=== PATIENT | female | born 1940 | race Caucasian/White ===

== ENCOUNTER → 2017-07-09 | Outpatient (CLI) | payer OTHER | END | disposition home or self-care (01) | LOC: CFH 10:49 | PROVIDERS: ATTEND Internal Medicine | DX: G31.9 Degenerative disease of nervous system, unspecified (principal); L72.3 Sebaceous cyst | CPT/HCPCS: 70551 ==

== ENCOUNTER → 2017-11-06 | Outpatient (CLI) | payer OTHER ==
[~2017-11-06] MED LIST: ASPI325T17 PO; LIDOCAINE 1%, 20ML ONE
== END ==
LOC: RAD 15:10
PROVIDERS: ATTEND Surgery
DX: C50.312 Malignant neoplasm of lower-inner quadrant of left female breast (principal); C50.411 Malignant neoplasm of upper-outer quadrant of right female breast
CPT/HCPCS: 38792; A9541; J3490

== ENCOUNTER 2017-11-07 08:26 | Day surgery (SDC) | payer OTHER ==
[~2017-11-07] VITALS: Ht 162.6 cm; Wt 80.0 kg
[~2017-11-07 08:26] MED LIST changes: -ASPI325T17 PO; +BUPIVACAINE/PF 0.5% ONE; +ISOSULFAN BLUE 10 MG/ML, 5ML IV ONE; -LIDOCAINE 1%, 20ML ONE
[2017-11-07 09:06] VITALS: BP 163/77
[2017-11-07] MEDS ORDERED: LIDOCAINE 1%, 2ML ONE (09:07)
[2017-11-07] MEDS ORDERED: MIDAZOLAM 1 MG/ML, 2ML ONE (09:27)
[2017-11-07] MEDS ORDERED: FENTANYL PF 250 MCG/5ML ONE (09:27)
[2017-11-07] MEDS ORDERED: ASPI325T17 PO (09:37)
[2017-11-07] MEDS ORDERED: LACTATED RINGERS 1,000 ML IV SCH (09:37)
[2017-11-07 09:58] LABS: BASOPHILS # (AUTO) 0.05 x10^3/uL (0-0.1); BASOPHILS % (AUTO) 1 % (0-1); EOSINOPHILS # (AUTO) 0.07 x10^3/uL (0-0.4); EOSINOPHILS % (AUTO) 1 % (1-7); LYMPHOCYTES # (AUTO) 1.66 x10^3/uL (1-3.4); LYMPHOCYTES % (AUTO) 28 % (22-44); MD NO; MEAN CORPUSCULAR HEMOGLOBIN 30.8 pg (27.0-34.8); MEAN CORPUSCULAR HGB CONC 34.1 g/dL (32.4-35.8); MEAN CORPUSCULAR VOLUME 90.2 fL (80-100); MEAN PLATELET VOLUME 8.4 fL (7.4-10.4); MONOCYTES # (AUTO) 0.38 x10^3/uL (0.2-0.8); MONOCYTES % (AUTO) 6 % (2-9); NEUTROPHILS # (AUTO) 3.77 x10^3/uL (1.8-6.8); NEUTROPHILS % (AUTO) 64 % (42-75); PLATELET COUNT 221 x10^3/uL (130-400); RED BLOOD COUNT 4.92 x10^6/uL (3.82-5.3); RED CELL DISTRIBUTION WIDTH 13.4 % (9.6-15.2)
[2017-11-07] MEDS ORDERED: LIDOCAINE 1%, 2ML SQ PRN (10:00)
[2017-11-07 10:07] LABS: ALANINE AMINOTRANSFERASE 24 U/L (12-78); ALBUMIN 3.8 g/dL (3.4-5.0); ANION GAP 8 mmol/L (5-15); CALCIUM 8.5 mg/dL (8.5-10.1); CHLORIDE 109 mmol/L (98-107)
[2017-11-07 10:09] LABS: ALKALINE PHOSPHATASE 62 U/L (45-117); BILIRUBIN,TOTAL 0.7 mg/dL (0.2-1.0); TOTAL PROTEIN 7.2 g/dL (6.4-8.2)
[2017-11-07] MEDS ORDERED: DEXAMETHASONE 4 MG/ML, 1ML ONE ×2 (10:10)
[2017-11-07] MEDS ORDERED: MIDAZOLAM 1 MG/ML, 2ML IV PRN (11:00)
[2017-11-07] MEDS ORDERED: ACETAMINOPHEN 325 MG TABLET PO PRN (11:00)
[2017-11-07] MEDS ORDERED: OXYcodone 5 MG/5 ML ORAL.SOL UDC PO PRN (11:00)
[2017-11-07] MEDS ORDERED: hydrALAzine 20 MG/ML, 1ML IV PRN (11:00)
[2017-11-07] MEDS ORDERED: ONDANSETRON 2MG/ML, 2ML IVPush PRN (11:00)
[2017-11-07] MEDS ORDERED: MEPERIDINE/PF 25MG/0.5ML IVPush PRN (11:00)
[2017-11-07] MEDS ORDERED: PROMETHAZINE 25 MG/ML, 1ML IV PRN (11:00)
[2017-11-07] MEDS ORDERED: LABETALOL 5MG/ML, 20ML IV PRN (11:00)
[2017-11-07] MEDS ORDERED: ROCURONIUM 10 MG/ML,10ML ONE (11:14)
[2017-11-07] MEDS ORDERED: PROPOFOL 10 MG/ML, 20ML ONE (11:14)
[2017-11-07] MEDS ORDERED: ONDANSETRON 2MG/ML, 2ML ONE (12:16)
[2017-11-07] MEDS ORDERED: EPINEPHRINE 1 MG/ML, 1ML INFIL ONE (12:24)
[2017-11-07] MEDS ORDERED: ACETAMINOPHEN 650 MG/20.3 ML UDC ONE (13:25)
[2017-11-07] MEDS ORDERED: ACETAMINOPHEN 325 MG TABLET ONE (13:25)
[2017-11-07] MEDS ORDERED: FENTANYL PF 100 MCG/2ML ONE (13:25)
[2017-11-07] MEDS ORDERED: OXYcodone 5 MG/5 ML ORAL.SOL UDC ONE (13:26)
[2017-11-07] MEDS: FENTANYL PF 100 MCG/2ML IV PRN ×2 (13:32→13:59)
[2017-11-07] MEDS ORDERED: HYDROmorphone 2 MG/ML, 1ML ONE (13:34)
[2017-11-07] MEDS: HYDROmorphone 1 MG/ML, 1ML IV PRN ×2 (13:36→13:45)
[2017-11-07] MEDS ORDERED: CEFAZOLIN 1,000 MG ONE (16:38)
== END 2017-11-07 17:05 | disposition home or self-care (01) ==
LOC: OUT 08:26
PROVIDERS: ATTEND Surgery
DX: C50.312 Malignant neoplasm of lower-inner quadrant of left female breast (principal); C50.811 Malignant neoplasm of overlapping sites of right female breast; F17.200 Nicotine dependence, unspecified, uncomplicated
CPT/HCPCS: 36415; 76098; 80053; 85025; 88305; 88307; 88333; 93005; C1729; J0171; J0690; J1100; J1170; J2250; J2405; J2704; J3010; J3490; J7120